=== PATIENT | female | born 1975 | race Caucasian/White ===

== ENCOUNTER → 2018-05-26 | Outpatient (CLI) | payer BC ==
--- NOTE | 2018-05-26 14:17 | CT ---
EXAMINATION TYPE: CT chest w con DATE OF EXAM: 05/26/2018 COMPARISON: None HISTORY: DYSPNEA. CT DLP: 500.9 mGycm, Automated exposure control for dose reduction was used. CONTRAST: Performed injected with 100 mL of Isovue 300. TECHNIQUE: Axial images were obtained at 5 mm thick sections. Reconstructed images are reviewed on [employer] computer in the coronal plane. FINDINGS: Portion of the thyroid visualized is normal. No suspicious lung nodules or focal infiltrates are present. No enlarged mediastinal or hilar adenopathy is evident. The ascending aorta diameter at the level o f the main pulmonary artery is 4.2 cm. The main pulmonary artery diameter at the bifurcation is 2.[address] sections are obtained through the upper abdomen. Moderate fatty infiltration is present th roughout the liver. Gallstones are present. There is a cyst within the spleen measuring 5.2 cm. IMPRESSIONS: 1. Ascending thoracic aortic aneurysm of 4.2 cm. 2. Splenic cyst. 3. Cholelithiasis. 4. Moderate fatty infiltration liver
== END ==
LOC: RADCTMAIN 13:17
PROVIDERS: ATTEND Family Medicine
DX: I71.2 Thoracic aortic aneurysm, without rupture (principal)
CPT/HCPCS: 71260; Q9967

== ENCOUNTER → 2019-10-31 | Outpatient (CLI) | payer BC ==
--- NOTE | 2019-10-31 09:47 | CT ---
EXAMINATION TYPE: CT angio chest DATE OF EXAM: 10/31/2019 9:23 AM COMPARISON: 05/26/2018 HISTORY: Follow up known thoracic aortic aneurysm CT DLP: 1066.4 mGycm Automated exposure control for dose reduction was used. CONTRAST: CTA scan of the thorax is performed without and with IV Contrast, patient injected with 100 mL of Iso taisha 370, pulmonary embolism protocol. . FINDINGS: LUNGS: The lungs are grossly clear, there is no concerning parenchymal mass or nodule identified. T here is no pleural effusion or pneumothorax seen. The tracheobronchial tree is patent. MEDIASTINUM: There is satisfactory enhancement of the pulmonary artery and its branches, there is no CT evidence for pulmonary embolism. There are no greater than 1 cm hilar or mediastinal lymph nodes. No pericardial effusion is seen. The ascending aorta diameter at the level of the main pulmonary artery is 4.2 cm. Motion artifact lara its assessment for dissection. The main pulmonary artery diameter at the bifurcation is 2.4 cm. OTHER: Diffuse low-attenuation throughout the liver most typical of fatty infiltration there are lar ge gallstones. Simple appearing splenic cyst noted. Hypertrophic and degenerative changes spine. IMPRESSION: 1. Stable 4.2 cm mild aneurysmal dilation ascending aorta. 2. Hepatic steatosis. 3. Cholelithiasis. 4. Splenic cyst.
== END | disposition home or self-care (01) ==
LOC: RADCTMAIN 08:06
PROVIDERS: ATTEND Family Medicine
DX: I71.2 Thoracic aortic aneurysm, without rupture (principal)
CPT/HCPCS: 71275; Q9967

== ENCOUNTER 2020-05-02 19:37 | Observation (INO) | payer BC ==
[2020-05-02 20:13] LABS: Basophils # (A) 0.1 k/uL (0-0.2); Basophils % (A) 1 %; Eosinophils # (A) 0.2 k/uL (0-0.7); Eosinophils % (A) 3 %; HCT 45.2 % (34.0-46.0); Lymphocytes # (A) 2.2 k/uL (1.0-4.8); Lymphocytes % (A) 33 %; MCH 31.6 pg (25.0-35.0); MCHC 33.3 g/dL (31.0-37.0); MCV 95.1 fL (80.0-100.0); Mean Platelet Volume 7.5; Monocytes # (A) 0.4 k/uL (0-1.0); Monocytes % (A) 7 %; Neutrophils # (A) 3.6 k/uL (1.3-7.7); Neutrophils % (A) 55 %; Platelet Count 199 k/uL (150-450); RBC 4.75 m/uL (3.80-5.40); RDW 12.7 % (11.5-15.5); WBC 6.5 k/uL (3.8-10.6)
--- NOTE | 2020-05-02 20:20 | ED ---
General Adult HPI - General Chief complaint: Chest Pain Stated complaint: Chest Pain Time Seen by Provider: 05/02/20 19:52 Source: patient, EMS Mode of arrival: EMS Limitations: no limitations - History of Present Illness Initial comments: Dictation was produced using [employer] dictation software. please excuse any grammatical, word or spelling errors. This patient was cared for during a federal and state declared state of emergency secondary to Covid 19 Chief Complaint: 45-year-old female past medical history of ascending aortic aneurysm presents with chest pain and headache. History of Present Illness: 45-year-old female past medical history of abdominal aortic aneurysm, family history of aneurysms presents to emergency department for chest pain or headache. Patient states her symptoms began being of this month. She states that she's been having a headache kind of behind her eyes. Patient states that her headache acutely worsened today prompting her to seek medical attention. Patient also has been having some epigastric and substernal chest pain. Patient was seen at the clinic where because of her history and comorbidities she was brought to the emergency department via EMS. EMS provided patient with one dose of aspirin. Patient states that her symptoms are improved since earlier today. She does not report that this is the worst headache of her life. He has never been tested for intracranial aneurysms. She denies any neurologic deficits. She states that every November she gets a CT angios of her chest to monitor her ascending aortic aneurysm. She sees a specialist at [facility]. She states that the last CT that she obtained showed an aneurysm of 4.6 cm. Relatively stable over the past couple years. The ROS documented in this emergency department record has been reviewed and confirmed by me. Those systems with pertinent positive or negative responses have been documented in the HPI. All other systems are other negative and/or noncontributory. PHYSICAL EXAM: General Impression: Alert and oriented x3, not in acute distress HEENT: Normocephalic atraumatic, extra-ocular movements intact, pupils equal and reactive to light bilaterally, mucous membranes moist. Cardiovascular: Heart regular rate and rhythm Chest: Able to complete full sentences, no retractions, no tachypnea Abdomen: abdomen soft, non-tender, non-distended, no organomegaly Musculoskeletal: Pulses present and equal in all extremities, no peripheral edema Motor: no focal deficits noted Neurological: CN II-XII grossly intact, no focal motor or sensory deficits noted Skin: Intact with no visualized rashes Psych: Normal affect and mood ED course: 45-year-old female with history of ascending aortic aneurysm presents with chest pain and headache. Signs upon arrival are within acceptable limits. Laboratory evaluation obtained. CBC and a metabolic panel unremarkable. First troponin is negative. Coag panel is negative. D-dimer 0.35, metabolic panel is negative. Chest x-ray shows no acute processes. Given suspicion of family history of collagen vascular disease given, and family history of aneurysms t here is concern for intracranial aneurysms. The patient has chest pain and headache there is concern of either worsening ascending aortic aneurysm and undiagnosed intracranial aneurysms. CT of the chest is unremarkable. No PE. Radiology measured aneurysm at 3.7 cm which is less than was been measured for patient for. CT angiogram of the head and neck shows no aneurysms or any acute processes. Patient reevaluated bedside approximate 9:40 PM on a meat stable medical condition. Patient be admitted with constipation cardiology, serial troponins and medical monitoring. Patient is agreeable to plan. She had a really received aspirin by EMS. Case was discussed with Dr. Gunn who is will ing to accept patients care. EKG interpretation: Ventricular rate 82, normal sinus rhythm, WI interval 146, QRS 120, QTC 464. No WI prolongation, no QTC prolongation, no ST or T-wave changes noted. No old EKG for comparison. Right bundle branch block. Overall, this EKG is unremarkable - Related Data Home Medications Medication Instructions Recorded Confirmed No Known Home Medications 05/02/20 05/02/20 Allergies Allergy/AdvReac Type Severity Reaction Status Date / Time No Known Allergies Allergy Verified 05/02/20 20:38 Review of Systems ROS Statement: Those systems with pertinent positive or pertinent negative responses have been documented in the HPI. ROS Other: All systems not noted in ROS Statement are negative. Past Medical History Past Medical History: Asthma, Myocardial Infarction ([place]), Mitral Valve Prolapse (MVP) Additional Past Medical History / Comment(s): Aneurys. AAA. RVB, History of Any Multi-Drug Resistant Organisms: None Reported Past Surgical History: Bladder Surgery Past Psychological History: No Psychological Hx Reported Smoking Status: Never smoker Past Alcohol Use History: Occasional Past Drug Use History: None Reported General Exam Limitations: no limitations Course Vital Signs 05/02/20 05/02/20 19:39 21:16 Temperature 98.1 F Pulse Rate 83 95 Respiratory 20 20 Rate Blood Pressure 139/93 121/81 O2 Sat by Pulse 98 98 Oximetry Medical Decision Making - Lab Data Result diagrams: 05/02/20 20:05 05/02/20 20:05 Lab Results 05/02/20 05/02/20 05/02/20 Range/Units 20:05 20:05 20:05 WBC 6.5 (3.8-10.6) k/uL RBC 4.75 (3.80-5.40) m/uL Hgb 15.0 (11.4-16.0) gm/dL Hct 45.2 (34.0-46.0) % MCV 95.1 (80.0-100.0) fL MCH 31.6 (25.0-35.0) pg MCHC 33.3 (31.0-37.0) g/dL RDW 12.7 (11.5-15.5) % Plt Count 199 (150-450) k/uL MPV 7.5 Neutrophils % 55 % Lymphocytes % 33 % Monocytes % 7 % Eosinophils % 3 % Basophils % 1 % Neutrophils # 3.6 (1.3-7.7) k/uL Lymphocytes # 2.2 (1.0-4.8) k/uL Monocytes # 0.4 (0-1.0) k/uL Eosinophils # 0.2 (0-0.7) k/uL Basophils # 0.1 (0-0.2) k/uL PT 9.9 (9.0-12.0) sec INR 0.9 (<1.2) APTT 21.5 L (22.0-30.0) sec D-Dimer 0.35 (<0.60) mg/L FEU Sodium 137 (137-145) mmol/L Potassium 3.9 (3.5-5.1) mmol/L Chloride 103 (98-107) mmol/L Carbon Dioxide 26 (22-30) mmol/L Anion Gap 8 mmol/L BUN 15 (7-17) mg/dL Creatinine 0.72 (0.52-1.04) mg/dL Est GFR (CKD-EPI)AfAm >90 (>60 ml/min/1.73 sqM) Est GFR (CKD-EPI)NonAf >90 (>60 ml/min/1.73 sqM) Glucose 99 (74-99) mg/dL Calcium 9.3 (8.4-10.2) mg/dL Magnesium 2.0 (1.6-2.3) mg/dL Total Bilirubin 0.7 (0.2-1.3) mg/dL AST 40 H (14-36) U/L ALT 57 H (4-34) U/L Alkaline Phosphatase 66 (38-126) U/L Troponin I (0.000-0.034) ng/mL Total Protein 7.3 (6.3-8.2) g/dL Albumin 4.2 (3.5-5.0) g/dL 05/02/20 Range/Units 20:05 WBC (3.8-10.6) k/uL RBC (3.80-5.40) m/uL Hgb (11.4-16.0) gm/dL Hct (34.0-46.0) % MCV (80.0-100.0) fL MCH (25.0-35.0) pg MCHC (31.0-37.0) g/dL RDW (11.5-15.5) % Plt Count (150-450) k/uL MPV Neutrophils % % Lymphocytes % % Monocytes % % Eosinophils % % Basophils % % Neutrophils # (1.3-7.7) k/uL Lymphocytes # (1.0-4.8) k/uL Monocytes # (0-1.0) k/uL Eosinophils # (0-0.7) k/uL Basophils # (0-0.2) k/uL PT (9.0-12.0) sec INR (<1.2) APTT (22.0-30.0) sec D-Dimer (<0.60) mg/L FEU Sodium (137-145) mmol/L Potassium (3.5-5.1) mmol/L Chloride (98-107) mmol/L Carbon Dioxide (22-30) mmol/L Anion Gap mmol/L BUN (7-17) mg/dL Creatinine (0.52-1.04) mg/dL Est GFR (CKD-EPI)AfAm (>60 ml/min/1.73 sqM) Est GFR (CKD-EPI)NonAf (>60 ml/min/1.73 sqM) Glucose (74-99) mg/dL Calcium (8.4-10.2) mg/dL Magnesium (1.6-2.3) mg/dL Total Bilirubin (0.2-1.3) mg/dL AST (14-36) U/L ALT (4-34) U/L Alkaline Phosphatase (38-126) U/L Troponin I <0.012 (0.000-0.034) ng/mL Total Protein (6.3-8.2) g/dL Albumin (3.5-5.0) g/dL Disposition Clinical Impression: Chest pain Disposition: ADMITTED IP TO THIS HOSP Condition: Fair Referrals: Roby Lim MD [Primary Care Provider] - 1-2 days Decision Time: 21:43
[2020-05-02 20:22] LABS: ALT 57 U/L (4-34); AST 40 U/L (14-36); African American GFR (CKD) >90 (>60 ml/min/1.73 sqM); Albumin 4.2 g/dL (3.5-5.0); Alkaline Phosphatase 66 U/L (38-126); Anion Gap 8 mmol/L; Blood Urea Nitrogen 15 mg/dL (7-17); Calcium 9.3 mg/dL (8.4-10.2); Carbon Dioxide 26 mmol/L (22-30); Chloride 103 mmol/L (98-107); Glucose 99 mg/dL (74-99); Non-African American GFR(CKD) >90 (>60 ml/min/1.73 sqM); Potassium 3.9 mmol/L (3.5-5.1); Sodium 137 mmol/L (137-145); Total Bilirubin 0.7 mg/dL (0.2-1.3); Total Protein 7.3 g/dL (6.3-8.2)
[2020-05-02 20:33] LABS: D-Dimer 0.35 mg/L FEU (<0.60); INR 0.9 (<1.2); Prothrombin Time 9.9 sec (9.0-12.0)
--- NOTE | 2020-05-02 20:33 | XR ---
EXAMINATION TYPE: XR chest 2V DATE OF EXAM: 05/02/2020 COMPARISON: 08/22/2009 HISTORY: Chest pain TECHNIQUE: 2 views FINDINGS: Heart and mediastinum are normal. Lungs are clear. Diaphragm is normal. Bony thorax appears normal. IMPRESSION: Normal chest. No change.
[2020-05-02 20:35] LABS: Partial Thromboplastin Time 21.5 sec (22.0-30.0)
--- NOTE | 2020-05-02 20:45 | CT ---
EXAMINATION TYPE: CT angio chest DATE OF EXAM: 05/02/2020 COMPARISON: 10/31/2019 HISTORY: elevated d-dimer, chest pain, SOB CT DLP: 806.4 mGycm Automated exposure control for dose reduction was used. CONTRAST: Performed with IV Contrast, patient injected with 50cc mL of Isovue 370. There are 3-D post processed images. The lungs are clear of infiltrate. There is no evidence of a pulmonary mass. There is no mediastinal adenopathy. There are no hilar masses. There are a few paratracheal lymph nodes that measure less joseph n 1 cm. The ascending aorta measures 3.7 cm. There is no dissection. There is no evidence of filling defect in the pulmonary arteries. There is suboptimal contrast densit y in the pulmonary arteries. There is fatty infiltration of the liver. There is no pleural effusion. Bony thorax is intact. There is intact sternum. IMPRESSION: No evidence of pulmonary embolism. Suboptimal exam. No evidence of active cardiopulmonary disease. Fatty infiltration of the liver. No change compared to old exam.
--- NOTE | 2020-05-02 21:29 | CT ---
EXAMINATION TYPE: CT angio head neck DATE OF EXAM: 05/02/2020 COMPARISON: None HISTORY: headache, hx of aneurysm CT DLP: 927.7 mGycm Automated exposure control for dose reduction was used. CONTRAST: Performed with IV Contrast, patient injected with 50cc mL of Isovue 370. There are 3-D post processed images. There is arterial flow in both subclavian arteries. There is normal branching pattern of the great ve ssels on the aortic arch. There is arterial flow in the common internal and external carotid arteries bilaterally. There is wide patency of the carotid artery bifurcations. There is arterial flow in bot h vertebral arteries. There is no evidence of vertebral or carotid artery aneurysm or dissection. There is arterial flow in the vertebrobasilar artery system. There is arterial flow in the anterior m iddle and posterior cerebral arteries. There is no evidence of intracranial aneurysm or neovascularit y. There is normal enhancement of the venous sinuses. There is no mass effect. I see no evidence of h emodynamic stenosis. IMPRESSION: Negative CT angiogram of the brain. Negative CT angiogram of the neck.
[2020-05-02] MEDS ORDERED: NITROGLYCERIN SL TABS 0.4 MG TAB SUBLINGUAL PRN (21:40)
[2020-05-03 02:23] LABS: Cholesterol 210 mg/dL (<200); HDL Cholesterol 70 mg/dL (40-60); LDL Cholesterol,Calculated 121 mg/dL (0-99); Triglycerides 94 mg/dL (<150)
[2020-05-03 07:38] VITALS: TEMP 98
[2020-05-03] MEDS ORDERED: ASPIRIN 325 MG TAB PO SCH (09:00)
--- NOTE | 2020-05-03 10:43 | P.CRDCN ---
History of Present Illness Consult date: 05/03/20 History of present illness: CHIEF COMPLAINT: Chest pain HISTORY OF PRESENT ILLNESS: This is a 45-year-old female with a past medical history significant for thoracic aortic aneurysm. Patient follows with a physician at the [facility]. We have been asked to see the patient in consultation for chest pain. Patient states that yesterday she woke up with a headache which is unusual for her so she called into work. She states she was sitting at home watching TV when she began having palpitations. She looked at her apple Elma and her heart rate was noted to be in the 160s and it said possible A. fib detected. She states she continued having palpitations and her apple Elma then showed a heart rate in the 190s so she decided to come to the urgent care who then directed her to come to the emergency room. Patient also states yesterday while having palpitations she began having some sharp pains in the left side of her chest and left armpit. She states these pains would only last for about 30 seconds and then would go away. She denies having any chest pain this morning. Patient has had no further palpitations since coming to the hospital. Patient states that she follows annually at the [facility] and usually has a stress test and a CT of the chest done. She states that she did not follow-up last year however. She reports her last stress test was in 2019 and was negative to her knowledge. She states her dad has a history of CVA, myocardial infarctions x4 with his first one being at age 42, aneurysms, atrial fibrillation, and pacemaker insertion. DIAGNOSTICS: EKG reveals sinus mechanism with no signs of acute ischemia Chest xray negative for acute process Chest CTA: Negative for PE. Ascending aorta measures 3.7 cm. No dissection. Laboratory data: WBC 6.5. Hemoglobin 15.0. Platelet count 199. Sodium 137. Potassium 3.9. BUN 15. Creatinine 0.72. AST 40. ALT 57. Troponin negative 3. Total cholesterol 210. LDL 121. Current home cardiac medications include none REVIEW OF SYSTEMS: At the time of my exam: CONSTITUTIONAL: Denies fever or chills. HEENT: Denies blurred vision, vision changes, or eye pain. Denies hemoptysis CARDIOVASCULAR: Denies chest pain, orthopnea, PND or palpitations RESPIRATORY: No shortness of breath. GASTROINTESTINAL: Denies abdominal pain. Denies nausea or vomiting. HEMATOLOGIC: Denies bleeding disorders. GENITOURINARY: Denies any blood in urine. SKIN: Denies pruitis. Denies rash. PHYSICAL EXAM: VITAL SIGNS: Reviewed. GENERAL: Well-developed in no acute distress. HEENT: Head is normocephalic. Pupils are equal, round. Sclerae anicteric. Mucous membranes of the mouth are moist. Neck supple. No JVD or thyromegaly LUNGS: Respirations even and unlabored. Lungs essentially clear to auscultation bilaterally. HEART: Regular rate and rhythm. S1 and S2 heard. ABDOMEN: Soft. Nondistended. Nontender. EXTREMITIES: Normal range of motion. No clubbing or cyanosis. Peripheral pulses intact. No lower extremity edema NEUROLOGIC: Awake and alert. Oriented x 3. ASSESSMENT: Palpitations Chest pain, atypical for angina History of thoracic aortic aneurysm Hyperlipidemia, LDL 121 Family history of premature coronary artery disease PLAN: An acute coronary event has been ruled out Continue telemetry monitoring to assess for arrhythmias Obtain 2-D echo to assess cardiac structure and function Patient to undergo stress echo today to assess for reversible ischemia 30 day event monitor to be placed at the time of discharge Further recommendations pending patient's course Nurse practitioner note has been reviewed by physician. Signing provider agrees with the documented findings, assessment, and plan of care. Past Medical History Past Medical History: Asthma, Myocardial Infarction ([place]), Mitral Valve Prolapse (MVP) Additional Past Medical History / Comment(s): Aneurys. AAA. RVB, Last Myocardial Infarction Date:: 2013 History of Any Multi-Drug Resistant Organisms: None Reported Past Surgical History: Bladder Surgery Additional Past Anesthesia/Blood Transfusion Reaction / Comment(s): pt. states she is difficult to awaken after general anesthesia Past Psychological History: No Psychological Hx Reported Smoking Status: Never smoker Past Alcohol Use History: Occasional Past Drug Use History: None Reported Medications and Allergies Home Medications Medication Instructions Recorded Confirmed Type No Known Home Medications 05/02/20 05/02/20 History Allergies Allergy/AdvReac Type Severity Reaction Status Date / Time No Known Allergies Allergy Verified 05/02/20 20:38 Physical Exam Vitals: Vital Signs Temp Pulse Pulse Resp BP BP Pulse Ox 05/03/20 07:35 98.0 F 74 14 112/71 96 05/03/20 02:00 97.8 F 82 16 118/78 97 05/03/20 00:37 98.3 F 74 18 106/79 97 05/02/20 22:08 98.3 F 92 18 116/84 97 05/02/20 21:16 95 20 121/81 98 05/02/20 19:39 98.1 F 83 20 139/93 98 Intake and Output 05/02/20 05/03/20 05/03/20 22:59 06:59 14:59 Other: Voiding Method Toilet # Voids 1 Weight 127.006 kg Results 05/02/20 20:05 05/02/20 20:05 Cardiac Enzymes 05/02/20 05/02/20 05/02/20 Range/Units 20:05 20:05 22:31 AST 40 H (14-36) U/L Troponin I <0.012 <0.012 (0.000-0.034) ng/mL 05/03/20 Range/Units 01:53 AST (14-36) U/L Troponin I <0.012 (0.000-0.034) ng/mL Coagulation 05/02/20 Range/Units 20:05 PT 9.9 (9.0-12.0) sec APTT 21.5 L (22.0-30.0) sec Lipids 05/03/20 Range/Units 01:53 Triglycerides 94 (<150) mg/dL Cholesterol 210 H (<200) mg/dL HDL Cholesterol 70 H (40-60) mg/dL CBC 05/02/20 Range/Units 20:05 WBC 6.5 (3.8-10.6) k/uL RBC 4.75 (3.80-5.40) m/uL Hgb 15.0 (11.4-16.0) gm/dL Hct 45.2 (34.0-46.0) % Plt Count 199 (150-450) k/uL Comprehensive Metabolic Panel 05/02/20 Range/Units 20:05 Sodium 137 (137-145) mmol/L Potassium 3.9 (3.5-5.1) mmol/L Chloride 103 (98-107) mmol/L Carbon Dioxide 26 (22-30) mmol/L BUN 15 (7-17) mg/dL Creatinine 0.72 (0.52-1.04) mg/dL Glucose 99 (74-99) mg/dL Calcium 9.3 (8.4-10.2) mg/dL AST 40 H (14-36) U/L ALT 57 H (4-34) U/L Alkaline Phosphatase 66 (38-126) U/L Total Protein 7.3 (6.3-8.2) g/dL Albumin 4.2 (3.5-5.0) g/dL Current Medications Generic Name Dose Route Start Last Admin Trade Name Freq PRN Reason Stop Dose Admin Aspirin 325 mg 05/03/20 09:00 Aspirin 325 Mg Tab PO DAILY RIDGE Nitroglycerin 0.4 mg 05/02/20 21:40 Nitroglycerin Sl Tabs 0.4 Mg Tab SUBLINGUAL Q5M PRN Chest Pain Intake and Output 05/02/20 05/03/20 05/03/20 22:59 06:59 14:59 Other: Voiding Method Toilet # Voids 1 Weight 127.006 kg 05/02/20 20:05 05/02/20 20:05
--- NOTE | 2020-05-03 12:48 | ECHOF ---
Referral Reason:Chest pain MEASUREMENTS -------- HEIGHT: 175.3 cm WEIGHT: 127.0 kg BP: 112/71 RVIDd: 4.2 cm (< 3.3) IVSd: 1.5 cm (0.6 - 1.1) LVIDd: 3.9 cm (3.9 - 5.3) LVPWd: 1.5 cm (0.6 - 1.1) IVSs: 1.6 cm LVIDs: 2.7 cm LVPWs: 1.6 cm LAESV Index (A-L): 19.50 ml/m Ao Diam: 3.3 cm (2.0 - 3.7) AV Cusp: 2.4 cm (1.5 - 2.6) LA Diam: 3.5 cm (2.7 - 3.8) MV EXCURSION: 19.459 mm (> 18.000) MV EF SLOPE: 50 mm/s (70 - 150) EPSS: 0.2 cm MV E Ramón: 0.71 m/s MV DecT: 130 ms MV A Ramón: 0.88 m/s MV E/A Ratio: 0.81 FINDINGS -------- Sinus rhythm. This was a technically adequate study. The left ventricular size is normal. There is moderate concentric left ventricular hypertrophy. O verall left ventricular systolic function is normal with, an EF between 55 - 60 %. The diastolic fi lling pattern is normal for the age of the patient 7.12. The right ventricle is moderately enlarged. Normal LA size by volume 22+/-6 ml/m2. The right atrial size is normal. Interatrial and interventricular septum intact. The aortic valve is trileaflet, and appears structurally normal. No aortic stenosis or regurgitation. The mitral valve is normal. There is trace mitral regurgitation. The tricuspid valve appears structurally normal. Mild tricuspid regurgitation present. There is n o evidence of pulmonary hypertension. The right ventricular systolic pressure, as measured by Doppl er, is {RVSP}. There is no pulmonic regurgitation present. The aortic root size is normal. IVC Not well visulized. There is no pericardial effusion. CONCLUSIONS -------- 1. There is moderate concentric left ventricular hypertrophy. 2. Overall left ventricular systolic function is normal with, an EF between 55 - 60 %. 3. The right ventricle is moderately enlarged. 4. The aortic valve is trileaflet, and appears structurally normal. No aortic stenosis or regurgitati on. 5. There is trace mitral regurgitation. 6. Mild tricuspid regurgitation present. ASSORTER LAUNDRY: Maria Valencia RDCS
[2020-05-03 15:15] VITALS: BP 113/78; PULSE 79; RESP 16
--- NOTE | 2020-05-03 15:32 | ECHOS ---
STRESS ECHOCARDIOGRAM LUMASON: N/A Vial INDICATIONS: Chest pain MEDICATIONS: BASELINE HEART RATE: 78 BASELINE BLOOD PRESSURE: 134/103 MAXIMUM HEART RATE: 156 MAXIMUM BLOOD PRESSURE: 130/64 85% MPHR: 149 100% MPHR: 175 METS: 5.1 MAXIMUM STAGE REACHED: 1 TOTAL EXERCISE TIME: 3 minutes, 43 seconds CLINICAL INFORMATION: Baseline rhythm is sinus mechanism, rate of 78, right bundle branch block. Baseline blood pressure 134/103 mmHg. Patient exercise post protocol for 3 minutes 43 seconds reaching peak rate 156 beats per minute which is equal to 89% maximum predicted heart rate. Peak blood pressure 130/64 mmHg. Test was terminated secondary to fatigue. There was no chest pain. Electrocardiograph monitoring revealed no evidence of diagnostic ischemic ST deviation. Baseline echocardiogram revealed normal wall motion. At peak exercise, there was normal wall motion augmentation with no hypokinesis or dyskinesis. CONCLUSION: 1. Poor exercise tolerance with normal electrocardiograph response to exercise. 2. Normal stress echocardiogram with no evidence of stress-induced ischemia. MMODL / IJN: [id number] /
[2020-05-03] MEDS ORDERED: ATORVASTATIN 20 MG TAB PO SCH (21:00)
--- NOTE | 2020-05-03 23:53 | P.HPIM ---
History of Present Illness H&P Date: 05/03/20 Chief Complaint: Heart beating History of presenting complaint: This is a very pleasant [address] frias from [place]. Normally in good health. Patient yesterday had about 5 episodes of mushy diarrhea. Also abdominal discomfort. She would get abdominal discomfort followed by diarrhea. Also had a headache. [place] hot and cold. He didn't eat much. In the evening she felt her heart to be beating fast. Apical what she did to be around 190s. Decided to come in. And really eating. Tired rundown. Otherwise very active. 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 Alcohol occasionally. Physical examination: VITAL SIGNS: 98.1, 83, 20, 139.93, 98% on room air GENERAL: BMI 41.3, sitting up in a chair, comfortable. EYES: Pupils equal. Conjunctiva normal. HEENT: External appearance of nose and ears normal, oral cavity grossly normal. NECK: JVD not raised; masses not palpable. HEART: First and second heart sounds are normal; no edema. LUNGS: Respiratory rate normal; clear to auscultation. ABDOMEN: Soft, nontender, liver spleen not palpable, no masses palpable. PSYCH: Alert and oriented x3; mood and affect normal. NEUROLOGICAL: Cranial nerves grossly intact; no facial asymmetry, power and sensation grossly intact. LYMPHATICS: No lymph nodes palpable in the axilla and neck INVESTIGATIONS, reviewed in the clinical context: White count 6.5 hemoglobin 15 platelets 199 potassium 3.9 creatinine 0.7 to Troponin I 3 negative LDL 121 EKG tracing personally reviewed by me-normal sinus rhythm, right bundle-branch block Chest x-ray film personally reviewed by me-clear CT angiogram head and neck. Negative Assessment: -This is a patient about 5 bowel movements with abdominal discomfort mushy stool. Headache. [place] hot and cold. Appears to be acute gastroenteritis. With toxic cephalgia. -Right bundle-branch block -Sinus tachycardia from dehydration as patient had not eaten. -Chest discomfort with tachycardia. Unlikely would rule out cardiac cause Plan: Cardiology was consulted. They ordered stress echocardiogram. Care was discussed with the patient. Told her to be on a bland diet. Past Medical History Past Medical History: Asthma, Myocardial Infarction (HI), Mitral Valve Prolapse (MVP) Additional Past Medical History / Comment(s): Aneurys. AAA. RVB, Last Myocardial Infarction Date:: 2013 History of Any Multi-Drug Resistant Organisms: None Reported Past Surgical History: Bladder Surgery Additional Past Anesthesia/Blood Transfusion Reaction / Comment(s): pt. states she is difficult to awaken after general anesthesia Past Psychological History: No Psychological Hx Reported Smoking Status: Never smoker Past Alcohol Use History: Occasional Past Drug Use History: None Reported Medications and Allergies Home Medications Medication Instructions Recorded Confirmed Type Atorvastatin [Lipitor] 20 mg PO HS #30 tab 05/03/20 Rx Allergies Allergy/AdvReac Type Severity Reaction Status Date / Time No Known Allergies Allergy Verified 05/02/20 20:38 Physical Exam Vitals: Vital Signs Temp Pulse Pulse Resp BP BP Pulse Ox 05/03/20 07:35 98.0 F 74 14 112/71 96 05/03/20 02:00 97.8 F 82 16 118/78 97 05/03/20 00:37 98.3 F 74 18 106/79 97 05/02/20 22:08 98.3 F 92 18 116/84 97 05/02/20 21:16 95 20 121/81 98 05/02/20 19:39 98.1 F 83 20 139/93 98 Intake and Output 05/02/20 05/03/20 05/03/20 22:59 06:59 14:59 Other: Voiding Method Toilet # Voids 1 Weight 127.006 kg Results CBC & Chem 7: 05/02/20 20:05 05/02/20 20:05 Labs: Abnormal Lab Results - Last 24 Hours (Table) 05/02/20 05/02/20 05/03/20 Range/Units 20:05 20:05 01:53 APTT 21.5 L (22.0-30.0) sec AST 40 H (14-36) U/L ALT 57 H (4-34) U/L Cholesterol 210 H (<200) mg/dL LDL Cholesterol, Calc 121 H (0-99) mg/dL HDL Cholesterol 70 H (40-60) mg/dL Thrombosis Risk Factor Assmnt - Choose All That Apply Each Factor Represents 1 point: Age 41-60 years, Obesity (BMI >25) Thrombosis Risk Factor Assessment Total Risk Factor Score: 2 Thrombosis Risk Factor Assessment Level: Low Risk
--- NOTE | 2020-05-03 23:56 | P.DS ---
Providers Date of admission: 05/02/20 21:41 Expected date of discharge: 05/03/20 Attending physician: Uvaldo Gunn Consults: 05/02/20 21:40 Consult Physician Urgent Consulting Provider: Bryce Horta Consult Reason/Comments: chest pain Do you want consulting provider notified?: Yes Primary care physician: Roby Lim MD Hospital Course: Chief Complaint: Heart beating History of presenting complaint: This is a very pleasant [address] lim from [place]. Normally in good health. Patient yesterday had about 5 episodes of mushy diarrhea. Also abdominal discomfort. She would get abdominal discomfort followed by diarrhea. Also had a headache. [place] hot and cold. He didn't eat much. In the evening she felt her heart to be beating fast. Apical what she did to be around 190s. Decided to come in. And really eating. Tired rundown. Otherwise very active. Patient felt to have acute gastroenteritis. In associated toxic cephalgia. Self-limiting. Likely viral. Palpitations likely sinus tachycardia from dehydration. Seen by cardiology. Stress echocardiogram was negative. Consultation: Dr. 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 Physical examination: VITAL SIGNS: 98, 74, 14, 112/71, 96% room air GENERAL: BMI 41.3, sitting up in a chair, comfortable. EYES: Pupils equal. Conjunctiva normal. HEENT: External appearance of nose and ears normal, oral cavity grossly normal. NECK: JVD not raised; masses not palpable. HEART: First and second heart sounds are normal; no edema. LUNGS: Respiratory rate normal; clear to auscultation. ABDOMEN: Soft, nontender, liver spleen not palpable, no masses palpable. PSYCH: Alert and oriented x3; mood and affect normal. NEUROLOGICAL: Cranial nerves grossly intact; no facial asymmetry, power and sensation grossly intact. LYMPHATICS: No lymph nodes palpable in the axilla and neck INVESTIGATIONS, reviewed in the clinical context: White count 6.5 hemoglobin 15 platelets 199 potassium 3.9 creatinine 0.7 to Troponin I 3 negative LDL 121 EKG tracing personally reviewed by me-normal sinus rhythm, right bundle-branch block Chest x-ray film personally reviewed by me-clear CT angiogram head and neck. Negative Assessment: -Acute vital gastroenteritis. With toxic cephalgia. -Right bundle-branch block -Morbid obesity BMI 41.3 Disposition: Home Patient Condition at Discharge: Stable Plan - Discharge Summary Discharge Rx Participant: No New Discharge Prescriptions: New Atorvastatin [Lipitor] 20 mg PO HS #30 tab Discharge Medication List Atorvastatin [Lipitor] 20 mg PO HS #30 tab 05/03/20 [Rx] Follow up Appointment(s)/Referral(s): Odette Osman MD [STAFF PHYSICIAN] - 4 Weeks (Office will call you with a follow up appointment date and time with Dr. Osman in 30 days.) Roby Lim MD [Primary Care Provider] - 1-2 days Patient Instructions/Handouts: Chest Pain (GEN) Discharge Disposition: HOME SELF-CARE
== END 2020-05-03 16:20 | disposition home or self-care (01) ==
LOC: EC 19:37 → 6NMEDSUR 21:41
PROVIDERS: ADMIT Hospitalist; ATTEND Hospitalist
DX: K52.9 Noninfective gastroenteritis and colitis, unspecified (principal); G44.89 Other headache syndrome; I45.10 Unspecified right bundle-branch block; E66.01 Morbid (severe) obesity due to excess calories; Z68.41 Body mass index [BMI] 40.0-44.9, adult; R00.0 Tachycardia, unspecified; R53.83 Other fatigue; R00.2 Palpitations; R07.2 Precordial pain; J45.909 Unspecified asthma, uncomplicated; E78.5 Hyperlipidemia, unspecified; I34.1 Nonrheumatic mitral (valve) prolapse; I71.2 Thoracic aortic aneurysm, without rupture; E86.0 Dehydration; Z86.79 Personal history of other diseases of the circulatory system; I25.2 Old myocardial infarction; Z79.899 Other long term (current) drug therapy; Z82.49 Family history of ischemic heart disease and other diseases of the circulatory system
CPT/HCPCS: 99285; 36415; 93005 ×2; 93306; 93270; 93351; 85379; 80061; 80053; 83735; 84484 ×2; 85025; 85610; 85730; 71046; 70496; 70498; 71275; G0378 ×2; Q9950; Q9967

== ENCOUNTER → 2020-07-06 | Outpatient (CLI) | payer BC ==
--- NOTE | 2020-07-11 10:12 | MM ---
Reason for exam: screening (asymptomatic). Last mammogram was performed 4 years and 8 months ago. History: Family history of breast cancer in mother, breast cancer in maternal grandmother, and breast cancer in paternal grandmother. Took hormonal contraceptives for 10 years. Physical Findings: A clinical breast exam by your physician is recommended on an annual basis and results should be correlated with mammographic findings. MG Screening Mammo w CAD Bilateral CC and MLO view(s) were taken. Prior study comparison: October 27, 2015, mammogram, performed at [facility]. July 29, 2013, mammogram, performed at [facility]. There are scattered fibroglandular densities. No significant changes when compared with prior studies. ASSESSMENT: Benign, BI-RAD 2 RECOMMENDATION: Routine screening mammogram of both breasts in 1 year.
== END | disposition home or self-care (01) ==
LOC: RADMAMWWP 13:57
PROVIDERS: ATTEND Obstetrics & Gynecology
DX: Z12.31 Encounter for screening mammogram for malignant neoplasm of breast (principal); Z80.3 Family history of malignant neoplasm of breast
CPT/HCPCS: 77067

== ENCOUNTER → 2021-05-01 | Outpatient (CLI) | payer BC ==
--- NOTE | 2021-05-01 09:37 | USB ---
Reason for exam: clinical finding. History: Family history of breast cancer in mother at age 50, breast cancer in maternal grandmother, and breast cancer in paternal grandmother. Took hormonal contraceptives for 10 years. Indicated problem(s): pain in both breasts. Physical Findings: Nurse did not find any significant physical abnormalities on exam. US Breast BILAT Right complete breast ultrasound includes all four quadrants, the retroareolar region and axilla. Finding demonstrates a 0.7 x 0.6 x 0.7cm oval, cystic lesion at 11 o'clock, benign thin walled cyst. Left complete breast ultrasound includes all four quadrants, the retroareolar region and axilla. Finding demonstrates no cystic or solid lesion seen. These results were verbally communicated with the patient and result sheet given to the patient on 05/01/21. ASSESSMENT: Benign, BI-RAD 2 RECOMMENDATION: Return to routine screening mammogram schedule for both breasts. Back on schedule for June 2021. Manage patient on a clinical basis.
== END | disposition home or self-care (01) ==
LOC: RADUSWWP 08:12
PROVIDERS: ATTEND Family Medicine
DX: N64.4 Mastodynia (principal); N60.01 Solitary cyst of right breast; Z80.3 Family history of malignant neoplasm of breast

== ENCOUNTER → 2021-07-06 | Outpatient (CLI) | payer BC ==
--- NOTE | 2021-07-06 09:12 | US ---
EXAMINATION TYPE: US abdomen limited DATE OF EXAM: 07/06/2021 COMPARISON: 08/08/2015 CLINICAL HISTORY: 46-year-old female D73.4 CYST OF SPLEEN. Followup splenic cyst. TECHNIQUE: Multiple sonographic images of the left upper quadrant are obtained. FINDINGS: EXAM MEASUREMENTS: Spleen:11.5 x 4.7 x 12.4cm Left Kidney: 10.0 x 4.9 x 5.2cm Spleen: inferior cyst = 4.2 x 4.3 x 4.0cm. Previously, this measured 3.5 x 3.5 x 3.3 cm. There is arturo e dependent material or definite nodularity now present. Continued follow-up recommended. Left Kidney: No hydronephrosis or masses seen IMPRESSION: Lower pole splenic cyst redemonstrated currently measuring 4.3 cm versus 3.5 cm back in 2016. There i s either now some dependent debris that has accumulated versus some mild complexity. Consider 6-12 mo nth follow-up ultrasound.
== END | disposition home or self-care (01) ==
LOC: RADUSWWP 07:02
PROVIDERS: ATTEND Family Medicine
DX: D73.4 Cyst of spleen (principal)
CPT/HCPCS: 76705

== ENCOUNTER → 2021-07-28 | Outpatient (CLI) | payer BC ==
--- NOTE | 2021-07-30 12:04 | CT ---
EXAMINATION TYPE: CT abdomen w con DATE OF EXAM: 07/28/2021 COMPARISON: CT 01/31/2017 HISTORY: Cyst of spleen CT DLP: 1525 mGycm Automated exposure control for dose reduction was used. TECHNIQUE: Helical acquisition of images was performed from the lung bases through the top of iliac crest to include entire abdomen. CONTRAST: Performed with Oral Contrast and with IV Contrast, patient injected with 100ml mL of Isovue 300. FINDINGS: LUNG BASES: No significant abnormality is appreciated. LIVER/GB: Large gallstones are again seen, liver shows low attenuation possibly due to hepatic steato sis. PANCREAS: No significant abnormality is seen. SPLEEN: Low dense focus within the spleen at the lower aspect is again noted and is stable in size an d density, smaller focus is present anteriorly measuring proximately 2 cm and also showing low attenu ation, not seen on prior, liver and the upper limit of normal for size ADRENALS: No significant abnormality is seen. KIDNEYS: No significant abnormality is seen. BOWEL: No significant abnormality is seen. LYMPH NODES: No significant abnormality is appreciated. OSSEOUS STRUCTURES: No significant abnormality is seen. FREE AIR: No Free Air visible ASCITES: None visible. RETROPERITONEAL ADENOPATHY: No Retroperitoneal Adenopathy visible. OTHER: IMPRESSION: STABLE LARGE SPLENIC CYST, SMALLER SPLENIC CYST HAS LIKELY DEVELOPED IN THE INTERVAL. HEPATIC STEATOS IS, CHOLELITHIASIS.
== END | disposition home or self-care (01) ==
LOC: RADCTMAIN 15:44
PROVIDERS: ATTEND Family Medicine
DX: D73.4 Cyst of spleen (principal); K76.0 Fatty (change of) liver, not elsewhere classified; K80.20 Calculus of gallbladder without cholecystitis without obstruction
CPT/HCPCS: 74160; Q9967

== ENCOUNTER → 2023-07-01 | Outpatient (CLI) | payer BC ==
[2023-07-01 18:17] LABS: HCT 41.9 % (37.2-46.3); HGB 13.5 g/dL (12.0-15.0); MCH 30.1 pg (27.0-32.0); MCHC 32.2 g/dL (32.0-37.0); MCV 93.5 FL (80.0-97.0); Mean Platelet Volume 11.2 FL (9.5-12.2); NRBC Per 100 WBC 0 X 10*3/uL (0.00-0.01); Platelet Count 221 X 10*3/uL (140-440); RBC 4.48 X 10*6/uL (4.10-5.20); RDW 13.7 % (11.5-14.5); WBC 4.29 X 10*3/uL (4.50-10.00)
[2023-07-01 18:56] LABS: % Iron Saturation 21.24 (12.00-45.00); ALT 19 U/L (8-44); AST 19 U/L (13-35); Albumin 4.2 g/dL (3.8-4.9); Albumin/Globulin Ratio 1.83 Ratio (1.60-3.17); Alkaline Phosphatase 57 U/L (41-126); BUN/Creat Ratio 13.12 Ratio (12.00-20.00); Blood Urea Nitrogen 10.5 mg/dL (9.0-27.0); Calcium 9.5 mg/dL (8.7-10.3); Carbon Dioxide 27.2 mmol/L (21.6-31.8); Chloride 106 mmol/L (96-109); Chol/HDL Ratio 3.34 Ratio; Ferritin 56.1 ng/mL (10.0-291.0); Globulin 2.3 g/dL (1.6-3.3); Glucose 100 mg/dL (70-110); Iron 72 UG/DL (50-170); LDL Cholesterol,Calculated 110.5 mg/dL (0.0-131.0); Phosphorus 3.3 mg/dL (2.4-5.1); Potassium 3.8 mmol/L (3.5-5.5); Sodium 143 mmol/L (135-145); Total Bilirubin 0.5 mg/dL (0.3-1.2); Total Iron Binding Capacity 339 UG/DL (228-460); Total Protein 6.5 g/dL (6.2-8.2); VLDL Calculation 19.84 mg/dL (5.00-40.00)
[2023-07-02 11:12] LABS: Zinc, Serum 79 ug/dL (60-130)
[2023-07-03 07:57] LABS: Vit B1(Thiamine) 55 ug/L (38-122)
== END | disposition home or self-care (01) ==
LOC: LABWHC1 09:56
PROVIDERS: ATTEND Surgery
DX: Z13.228 Encounter for screening for other metabolic disorders (principal); K90.9 Intestinal malabsorption, unspecified; E66.01 Morbid (severe) obesity due to excess calories; Z98.84 Bariatric surgery status
CPT/HCPCS: 36415; 80053; 80061; 82306; 82607; 82728; 82746; 83036; 83540; 83550; 83735; 84100; 84207; 84425; 84443; 84590; 84630; 85027

== ENCOUNTER → 2024-06-10 | Outpatient (CLI) | payer BC ==
--- NOTE | 2024-06-10 17:46 | CT ---
EXAMINATION TYPE: CT abdomen w con DATE OF EXAM: 06/10/2024 5:25 PM COMPARISON: CT abdomen pelvis most recent from 07/28/2021 CLINICAL INDICATION: Female, 49 years old with history of D73.4; Lesion on spleen. TECHNIQUE: Axial CT abdomen w con;Sagittal and coronal reformats were created on a separate workstat ion. Contrast used:100 ml mL of Isovue 300 with IV Contrast, (none if empty) Oral contrast used: with Oral Contrast (none if empty) CT DLP: 1115 mGycm, Automated exposure control for dose reduction was used. FINDINGS: LOWER CHEST: Unremarkable ABDOMEN LIVER: Unremarkable GALLBLADDER AND BILE DUCTS: Layering increased densities within the lumen consistent with gallstones are present. PANCREAS: Unremarkable. SPLEEN: There are 2 lesions in the spleen. One is bilobed measuring 22 x 19 mm and 15 Hounsfield unit s and another larger measuring up to 49 mm and 7 Hounsfield units. ADRENAL GLANDS: Unremarkable. KIDNEYS AND URETERS: No evidence of hydronephrosis or renal calculus. The ureters are unremarkable. PELVIS BLADDER: No evidence for wall thickening or mass given limitations of exam. REPRODUCTIVE: Unremarkable. ABDOMEN & PELVIS STOMACH AND BOWEL: No evidence of bowel obstruction. Postsurgical changes of the gastric lumen with s leeve. PERITONEUM/RETROPERITONEUM: No evidence of pneumoperitoneum or free fluid. VASCULATURE: No evidence of aortic aneurysm. MUSCULOSKELETAL: No acute osseous abnormalities LYMPH NODES: No gross evidence for lymphadenopathy. SOFT TISSUE/ABDOMINAL WALL: Unremarkable IMPRESSION: 1. Splenic lesions most compatible with cysts. No suspicious splenic lesions. 2. Large gallstones in the gallbladder lumen. 3. Surgical changes to the gastric lumen no evidence for obstruction or hernia. [facility], , 06/10/2024 5:44 PM
== END | disposition home or self-care (01) ==
LOC: RADCTMAIN 16:29
PROVIDERS: ATTEND Family Medicine
DX: K80.20 Calculus of gallbladder without cholecystitis without obstruction (principal); D73.4 Cyst of spleen; Z98.84 Bariatric surgery status
CPT/HCPCS: 74160; Q9967